=== PATIENT | male | born 1985 | race Caucasian/White ===

== ENCOUNTER → 2024-02-24 17:30 | Outpatient (REF) | payer BC, SELFPAY | LOC: MRI 3T 17:30 | PROVIDERS: ATTENDING PHYSICIAN Physician Assistant Medical | DX: S39.94XA Unspecified injury of external genitals, initial encounter (principal) | CPT/HCPCS: 72197; A9575 ==

== ENCOUNTER → 2024-11-01 09:48 | Outpatient (REF) | payer BC, SELFPAY ==
[2024-11-01 11:19] LABS: Hematocrit 42.1 % (39.0-52.0); Hemoglobin 13.7 g/dL (13.0-18.0); Mean Corp Hgb Conc. 32.5 g/dL (33.0-37.0); Mean Corpuscular Volume 84.5 fL (80.0-94.0); Nucleated Red Blood Cells % 0 % (-); Platelet Count 285 10^3/uL (130-400); Red Cell Dist. Width 13.2 % (11.5-14.5)
[2024-11-01 11:54] LABS: Glycohemoglobin (HgbA1c) 5.5 % (4.0-5.6)
[2024-11-01 12:06] LABS: ALT (SGPT) 20 U/L (0-50); AST (SGOT) 23 U/L (17-59); Albumin 4.8 g/dl (3.5-5.0); Alkaline Phosphatase 44 U/L (38-126); Blood Urea Nitrogen 18 mg/dl (9-20); Calcium 10.1 mg/dl (8.4-10.2); Carbon Dioxide 30 mmol/L (22-30); Chloride 105 mmol/L (98-107); Glucose 109 mg/dl (70-99); HDL Cholesterol 85 mg/dl; LDL Cholesterol, Calculated 100 mg/dl; Potassium 5.0 mmol/L (3.5-5.1); Sodium 140 mmol/L (135-145); Total Protein 7.3 g/dl (6.3-8.2); Very Low Density Lipoprotein 8 mg/dl (0-30); eGFR > 60.00
== END ==
LOC: REG 09:48
PROVIDERS: ATTENDING PHYSICIAN Student in an Organized Health Care Education/Training Program
DX: Z00.01 Encounter for general adult medical examination with abnormal findings (principal); Z13.220 Encounter for screening for lipoid disorders; R73.03 Prediabetes
CPT/HCPCS: 36415; 80053; 80061; 83036; 84443; 85025